=== PATIENT | male | born 1945 | race Caucasian/White ===

== ENCOUNTER 2019-01-01 12:08 | Emergency (ER) | payer MEDICARE, MEDICAID ==
[~2019-01-01] VITALS: Ht 172.7 cm; Wt 60.0 kg
[~2019-01-01 12:08] MED LIST: HYDR-4383 PO; PRED20TA PO
[2019-01-01 12:43] LABS: BASOPHILS # (AUTO) 0.1 X10'3 (0-0.2); BASOPHILS % (AUTO) 1.2 % (0-1); EOSINOPHILS # (AUTO) 0.4 X10'3 (0-0.9); EOSINOPHILS % (AUTO) 5.4 % (0-6); HEMATOCRIT 41.9 % (42.0-52.0); HEMOGLOBIN 14.1 g/dl (14.0-17.9); LYMPHOCYTES # (AUTO) 2.4 X10'3 (1.1-4.8); LYMPHOCYTES % (AUTO) 33.1 % (21-51); MEAN CORPUSCULAR HEMOGLOBIN 31.2 PG (27.0-31.0); MEAN CORPUSCULAR HGB CONC 33.7 g/dL (33.0-36.5); MEAN CORPUSCULAR VOLUME 92.8 FL (78-98); MEAN PLATELET VOLUME 6.7 FL (7.4-10.4); MONOCYTES # (AUTO) 0.5 X10'3 (0-0.9); MONOCYTES % (AUTO) 7.1 % (2-12); NEUTROPHILS # (AUTO) 3.9 X10'3 (1.8-7.7); NEUTROPHILS % (AUTO) 53.2 % (42-75); PLATELET COUNT 340 X10'3 (140-440); RED BLOOD COUNT 4.52 X10'6 (4.70-6.10); RED CELL DISTRIBUTION WIDTH 12.9 % (11.5-14.5); WHITE BLOOD COUNT 7.2 X10'3 (4.5-11.0)
[2019-01-01 12:55] LABS: ALANINE AMINOTRANSFERASE 25 U/L (12-78); ALBUMIN 3.7 G/DL (3.4-5.0); ALKALINE PHOSPHATASE 63 IU/L (46-116); ANION GAP 8 (8-16); ASPARTATE AMINO TRANSFERASE 20 U/L (10-37); BILIRUBIN,TOTAL 0.5 MG/DL (0.1-1.0); BLOOD UREA NITROGEN 22 MG/DL (7-18); BUN/CREATININE RATIO 16.7 (5.4-32.0); CALCIUM 9.3 MG/DL (8.5-10.1); CHLORIDE 105 MMOL/L (99-107); CREATININE 1.32 MG/DL (0.60-1.10); GLUCOSE 96 MG/DL (70-104); SODIUM 139 MMOL/L (135-145); TOTAL CARBON DIOXIDE 26.5 MMOL/L (24-32); TOTAL PROTEIN 7.5 G/DL (6.4-8.2); eGFR 53 ML/MIN
[2019-01-01 13:02] LABS: PARTIAL THROMBOPLASTIN TIME 29 SECONDS (22-32)
--- NOTE | 2019-01-01 13:58 | NUR ---
multiple failed attempts at iv start, pt refusing iv. refusing iv bolus. aware.
[2019-01-01 14:24] VITALS: BP 150/71
== END 2019-01-01 14:43 | disposition left against medical advice (07) ==
LOC: ER 12:10
DX: I63.81 Other cerebral infarction due to occlusion or stenosis of small artery (principal); G45.9 Transient cerebral ischemic attack, unspecified; I10 Essential (primary) hypertension; J44.9 Chronic obstructive pulmonary disease, unspecified; Z87.442 Personal history of urinary calculi; Z59.0 Homelessness; Z98.890 Other specified postprocedural states; Z79.899 Other long term (current) drug therapy
CPT/HCPCS: 36415; 70450; 71045; 80053; 84484; 85025; 85610; 85730; 93005; 99284

== ENCOUNTER 2019-02-13 08:21 | Emergency (ER) | payer MEDICARE, MEDICAID ==
[~2019-02-13] VITALS: Ht 172.7 cm; Wt 60.9 kg
[2019-02-13 08:29] VITALS: BP 128/74
--- NOTE | 2019-02-13 08:56 | NUR ---
right shoulder pain x 1 month r/t fall on rocks. able to lift arm with some discomfort
== END 2019-02-13 09:40 | disposition home or self-care (01) ==
LOC: ER 08:21
DX: M51.34 Other intervertebral disc degeneration, thoracic region (principal); I10 Essential (primary) hypertension; J44.9 Chronic obstructive pulmonary disease, unspecified; Z87.442 Personal history of urinary calculi; Z98.890 Other specified postprocedural states; Z59.0 Homelessness; Z88.2 Allergy status to sulfonamides; Z79.899 Other long term (current) drug therapy
CPT/HCPCS: 72128; 99284

== ENCOUNTER 2019-07-27 16:11 | Emergency (ER) | payer MEDICARE, MEDICAID ==
[~2019-07-27] VITALS: Ht 172.7 cm; Wt 59.5 kg
[2019-07-27 16:18] VITALS: BP 123/96
== END 2019-07-27 18:38 | disposition left against medical advice (07) ==
LOC: ER 16:11
DX: M25.511 Pain in right shoulder (principal); Z53.21 Procedure and treatment not carried out due to patient leaving prior to being seen by health care provider
CPT/HCPCS: 73030

== ENCOUNTER 2019-07-28 06:32 | Emergency (ER) | payer MEDICARE, MEDICAID ==
[~2019-07-28] VITALS: Ht 175.3 cm; Wt 59.6 kg
[2019-07-28] MEDS ORDERED: triamcinolone acetonide 40mg/ml inj IM ONE (07:15)
[2019-07-28 07:55] VITALS: BP 153/94
[2019-07-28] MEDS ORDERED: LIDOcaine 1% W/epiNEPHrine 1:100,000 20ml vial ONE (08:00)
== END 2019-07-28 08:22 | disposition home or self-care (01) ==
LOC: ER 06:32
DX: M75.41 Impingement syndrome of right shoulder (principal); I10 Essential (primary) hypertension; J44.9 Chronic obstructive pulmonary disease, unspecified; M79.18 Myalgia, other site; Z87.442 Personal history of urinary calculi; Z59.0 Homelessness; Z98.890 Other specified postprocedural states; Z88.1 Allergy status to other antibiotic agents; Z88.8 Allergy status to other drugs, medicaments and biological substances; Z79.899 Other long term (current) drug therapy; Z86.73 Personal history of transient ischemic attack (TIA), and cerebral infarction without residual deficits
CPT/HCPCS: 20552; 99284; J3301

== ENCOUNTER 2022-07-06 09:11 | Emergency (ER) | payer MEDICARE, MEDICAID ==
[~2022-07-06] VITALS: Ht 172.7 cm; Wt 54.0 kg
[2022-07-06 09:13] VITALS: BP 143/69
[2022-07-06] MEDS ORDERED: LIDOcaine 5% patch TP STA (10:43)
[2022-07-06] MEDS ORDERED: METH4TAB81 PO (10:43)
== END 2022-07-06 11:09 | disposition home or self-care (01) ==
LOC: ER 09:11
DX: M77.8 Other enthesopathies, not elsewhere classified (principal); M25.512 Pain in left shoulder; I10 Essential (primary) hypertension; J44.9 Chronic obstructive pulmonary disease, unspecified; Z87.442 Personal history of urinary calculi; Z98.890 Other specified postprocedural states; Z60.2 Problems related to living alone; Z88.1 Allergy status to other antibiotic agents; Z88.8 Allergy status to other drugs, medicaments and biological substances; Z79.899 Other long term (current) drug therapy
CPT/HCPCS: 73030; 99283

== ENCOUNTER 2022-10-04 17:52 | Emergency (ER) | payer MEDICARE, MEDICAID ==
[~2022-10-04] VITALS: Ht 172.7 cm; Wt 59.1 kg
[~2022-10-04 17:52] MED LIST changes: +METH4TAB81 PO
[2022-10-04 19:18] LABS: BASOPHILS # (AUTO) 0.1 X10'3 (0-0.2); BASOPHILS % (AUTO) 1.1 % (0-1); EOSINOPHILS # (AUTO) 0.3 X10'3 (0-0.9); EOSINOPHILS % (AUTO) 3.9 % (0-6); HEMATOCRIT 40.1 % (42.0-52.0); HEMOGLOBIN 13.4 g/dl (14.0-17.9); LYMPHOCYTES # (AUTO) 2.6 X10'3 (1.1-4.8); LYMPHOCYTES % (AUTO) 35.9 % (21-51); MEAN CORPUSCULAR HEMOGLOBIN 31.8 PG (27.0-31.0); MEAN CORPUSCULAR HGB CONC 33.5 g/dL (33.0-36.5); MEAN CORPUSCULAR VOLUME 94.8 FL (78-98); MEAN PLATELET VOLUME 6.6 FL (7.4-10.4); MONOCYTES # (AUTO) 0.6 X10'3 (0-0.9); NEUTROPHILS # (AUTO) 3.8 X10'3 (1.8-7.7); NEUTROPHILS % (AUTO) 51.1 % (42-75); PLATELET COUNT 285 X10'3 (140-440); RED BLOOD COUNT 4.23 X10'6 (4.70-6.10); RED CELL DISTRIBUTION WIDTH 13.3 % (11.5-14.5); WHITE BLOOD COUNT 7.4 X10'3 (4.5-11.0)
[2022-10-04 19:23] LABS: CLARITY,URINE CLEAR (Clear); COLOR,URINE YELLOW (Yellow); GLUCOSE, URINE NEGATIVE (Neg); KETONES,URINE NEGATIVE (Neg); LEUKOCYTE ESTERASE ,URINE NEGATIVE (Neg); NITRITES, URINE NEGATIVE (Neg); OCCULT BLOOD,URINE TRACE-INTACT (Neg); PH,URINE 6.5 (4.8-8.0); PROTEIN,URINE NEGATIVE (Neg); UROBILINOGEN,URINE 0.2 E.U/dL (0.2-1.0)
[2022-10-04 19:24] LABS: UA COLLECTION TYPE OTHER
[2022-10-04 19:30] LABS: APTT 26 SECONDS (22-32)
[2022-10-04 19:38] LABS: ALANINE AMINOTRANSFERASE 18 U/L (12-78); ALBUMIN 3.8 G/DL (3.4-5.0); ALBUMIN/GLOBULIN RATIO 1.1 (1.1-1.5); ALKALINE PHOSPHATASE 66 IU/L (46-116); ANION GAP 7 (8-16); ASPARTATE AMINO TRANSFERASE 22 U/L (10-37); BILIRUBIN,TOTAL 0.4 MG/DL (0.1-1.0); BLOOD UREA NITROGEN 19 MG/DL (7-18); BUN/CREATININE RATIO 14.7 (10.0-20.0); CALCIUM 9.1 MG/DL (8.5-10.1); CHLORIDE 103 MMOL/L (99-107); CREATININE 1.29 MG/DL (0.60-1.10); GLUCOSE 102 MG/DL (70-104); POTASSIUM 4.1 MMOL/L (3.5-5.1); SODIUM 141 MMOL/L (135-145); TOTAL CARBON DIOXIDE 31.1 MMOL/L (24-32); TOTAL PROTEIN 7.3 G/DL (6.4-8.2); eGFR 54 ML/MIN
[2022-10-04 19:41] LABS: BACTERIA,URINE NONE SEEN /HPF (Neg); MUCUS STRANDS NONE SEEN /LPF (Neg); RBC,URINE 0-2 /HPF (0-2); SQUAMOUS EPITHELIAL CELL,UR NONE SEEN /LPF (FEW); WBC,URINE 0-4 /HPF (0-4)
[2022-10-04] MEDS ORDERED: normal saline 1000ML IV soln IVB ONE (19:45)
[2022-10-04] MEDS ORDERED: iohexol 350MG/ML 100ml bottle IV ONE (19:49)
[2022-10-04 21:59] VITALS: BP 155/74
== END 2022-10-04 22:00 | disposition home or self-care (01) ==
LOC: ER 17:54
DX: R41.0 Disorientation, unspecified (principal); I10 Essential (primary) hypertension; J44.9 Chronic obstructive pulmonary disease, unspecified; Z88.2 Allergy status to sulfonamides; Z88.8 Allergy status to other drugs, medicaments and biological substances; Z79.899 Other long term (current) drug therapy
CPT/HCPCS: 36415; 70450; 70496; 70498; 71045; 80053; 81001; 82948; 84484; 85025; 85610; 85730; 93005; 99285; J3490; J7030; Q9967

== ENCOUNTER 2024-04-15 19:49 | Emergency (ER) | payer MEDICARE, MEDICAID ==
[~2024-04-15] VITALS: Ht 172.7 cm; Wt 56.4 kg
[2024-04-15] MEDS: cetirizine 10mg tablet PO ONE (20:28)
[2024-04-15] MEDS: dexamethasone sod phosphate 10mg/ml inj PO STA (20:29)
[2024-04-15] MEDS ORDERED: PRED20TA PO (20:44)
[2024-04-15] MEDS ORDERED: CETI1TAB PO (20:44)
[2024-04-15] MEDS ORDERED: FLUT9.9S BOTHNARES (20:44)
[2024-04-15 20:53] VITALS: BP 108/62; PULSE 80; RESP 16; TEMP 98.5; O2SAT 99
== END 2024-04-15 20:54 | disposition home or self-care (01) ==
LOC: ER 19:50
DX: H69.93 Unspecified Eustachian tube disorder, bilateral (principal); I10 Essential (primary) hypertension; J44.9 Chronic obstructive pulmonary disease, unspecified; Z88.2 Allergy status to sulfonamides; Z79.899 Other long term (current) drug therapy
CPT/HCPCS: 99283; J1100

== ENCOUNTER 2024-06-12 10:21 | Emergency (ER) | payer MEDICARE, MEDICAID ==
[~2024-06-12] VITALS: Ht 172.7 cm; Wt 58.0 kg
[~2024-06-12 10:21] MED LIST changes: +CETI1TAB PO; +FLUT9.9S BOTHNARES
[2024-06-12 12:27] LABS: BASOPHILS # (AUTO) 0.1 X10'3 (0-0.2); EOSINOPHILS # (AUTO) 0.2 X10'3 (0-0.9); EOSINOPHILS % (AUTO) 2.6 % (0-6); HEMATOCRIT 41.7 % (42.0-52.0); HEMOGLOBIN 13.9 g/dl (14.0-17.9); LYMPHOCYTES # (AUTO) 1.7 X10'3 (1.1-4.8); LYMPHOCYTES % (AUTO) 27.2 % (21-51); MEAN CORPUSCULAR HEMOGLOBIN 32.2 PG (27.0-31.0); MEAN CORPUSCULAR HGB CONC 33.5 g/dL (33.0-36.5); MEAN CORPUSCULAR VOLUME 96.3 FL (78-98); MEAN PLATELET VOLUME 7.5 FL (7.4-10.4); MONOCYTES # (AUTO) 0.5 X10'3 (0-0.9); MONOCYTES % (AUTO) 8.7 % (2-12); NEUTROPHILS # (AUTO) 3.7 X10'3 (1.8-7.7); NEUTROPHILS % (AUTO) 60.5 % (42-75); PLATELET COUNT 352 X10'3 (140-440); RED BLOOD COUNT 4.33 X10'6 (4.70-6.10); RED CELL DISTRIBUTION WIDTH 13.4 % (11.5-14.5); WHITE BLOOD COUNT 6.1 X10'3 (4.5-11.0)
[2024-06-12 12:41] LABS: ALANINE AMINOTRANSFERASE 29 U/L (12-78); ALBUMIN 3.6 G/DL (3.4-5.0); ALBUMIN/GLOBULIN RATIO 0.9 (1.1-1.5); ALKALINE PHOSPHATASE 55 IU/L (46-116); ANION GAP 6 (8-16); ASPARTATE AMINO TRANSFERASE 22 U/L (10-37); BILIRUBIN,TOTAL 0.5 MG/DL (0.1-1.0); BLOOD UREA NITROGEN 15 MG/DL (7-18); BUN/CREATININE RATIO 13.2 (10.0-20.0); CALCIUM 8.7 MG/DL (8.5-10.1); CHLORIDE 103 MMOL/L (99-107); CREATININE 1.14 MG/DL (0.60-1.10); GLUCOSE 96 MG/DL (70-104); POTASSIUM 4.2 MMOL/L (3.5-5.1); SODIUM 140 MMOL/L (135-145); TOTAL CARBON DIOXIDE 31.5 MMOL/L (24-32); TOTAL PROTEIN 7.5 G/DL (6.4-8.2); eCRCL 45 ML/MIN; eGFR 62 ML/MIN
[2024-06-12 14:22] VITALS: BP 156/79; PULSE 76; RESP 16; TEMP 98.5; O2SAT 99
== END 2024-06-12 14:03 | disposition home or self-care (01) ==
LOC: ER 10:22
DX: C76.2 Malignant neoplasm of abdomen (principal); I10 Essential (primary) hypertension; J44.9 Chronic obstructive pulmonary disease, unspecified; Z88.2 Allergy status to sulfonamides; Z88.8 Allergy status to other drugs, medicaments and biological substances; Z79.899 Other long term (current) drug therapy; Z79.52 Long term (current) use of systemic steroids; Z59.00 Homelessness unspecified; Z60.2 Problems related to living alone; Z87.442 Personal history of urinary calculi; Z98.890 Other specified postprocedural states
CPT/HCPCS: 36415; 80053; 85025; 99283

== ENCOUNTER 2024-12-27 18:48 | Emergency (ER) | payer MEDICARE, MEDICAID ==
[~2024-12-27] VITALS: Ht 172.7 cm; Wt 56.4 kg
--- NOTE | 2024-12-27 20:23 | RADIOLOGY REPORT ---
CLINICAL INDICATION: left foot pain TECHNIQUE: 3 radiographic views of the left foot were obtained. Comparison: None FINDINGS/IMPRESSION: There is chronic fracture deformity of the 1st metatarsal head with subtle linear lucency laterally. Correlate with point tenderness for possible acute on chronic fracture of the 1st metatarsal head. No dislocation. Small plantar Calcaneal bony spur. Questionable mild soft tissue edema of the dorsum of the foot. Vascular calcification is noted
--- NOTE | 2024-12-27 20:36 | Physician Documentation ---
History of Present Illness ~ Chief Complaint: Ankle pain Stated Complaint: "I THINK I MAY HAVE BEEN BIT ON FOOT BY A SPIDER" Time Seen by MD: 19:05 Primary Medical Doctor: DR. LUU HPI Patient is seen today with complaints of left-sided foot pain that started just yesterday while he was walking around his guarding. Patient is unsure whether he rolled his ankle where he got bit by a bee or a spider something. Patient states he has tenderness to palpation right at the apex of the dorsum of the his left foot. Patient admits to to bunion surgeries of the left foot of the 1st metatarsal. Patient denies any fevers or chills or chest pain or shortness of breath or abdominal pain or nausea, vomiting, diarrhea. Patient has no other concern or complaint at this time. Tetanus witin 5 years: Yes Medication Reconciliation Allergies: Coded Allergies: sulfamethoxazole (Unverified Allergy, Severe, throat swelling, 12/27/24) trimethoprim (Unverified Allergy, Severe, throat swelling, 12/27/24) Scheduled Cetirizine Hcl/Pseudoephedrine (Zyrtec-D Tablet), 1 TAB PO Q12H Fluticasone Propionate (Flonase Allergy Relief), 2 SPRAYS BOTHNARES DAILY Hydrocodone/Acetaminophen ([place] 5-325 Tablet), 1 TABLET PO BID Methylprednisolone (Medrol Dosepak), 4 MG PO DAILY Prednisone* (Prednisone*), 60 MG PO DAILY Past Medical History Past Medical History: Hypertension, COPD, Kidney Stones Past Surgical History: orthopedic surgeries, other Alcohol Use: None Drug Use: none Lives with: Alone Lives In: Homeless Review of Systems Constitutional: Denies: chills, fever, weakness Eyes: Denies: pain, blurred vision ENT: Denies: ear pain, nose pain, throat pain, mouth pain Respiratory: Denies: cough, shortness of breath Cardiovascular: Denies: chest pain, palpitations Gastrointestinal: Denies: abdominal pain, nausea, vomiting Genitourinary: Denies: burning, dysuria Male Genitalia: Denies: penile discharge, testicular pain Neurological: Denies: headache, dizziness Musculoskeletal: Denies: pain, swelling Integumentary: Denies: rash, lesions Allergic/Immunologic: Denies: hives, itching Hematologic/Lymphatic: Denies: no symptoms reported Psychiatric: Denies: depression, anxiety Physical Exam Vital Signs: Temperature: 98.1, Source: Oral, Heart Rate: 58, Respiratory Rate: 18, BP: 139/61, Pulse Oximetry: 98, Weight: 56.360 Physical Exam General: Awake and Alert, no acute distress. HEENT: Conjunctiva pink, Sclera clear, Mucus Membranes moist. Neck: Supple without masses and tenderness. Resp: Unlabored. Lungs clear to auscultation bilaterally. Heart: Regular Rate and rhythm, normal S1 and S2 without murmur, rub or gallop. Musculoskeletal: Patient on exam has tenderness to palpation of the dorsum of the left foot near the most distal navicular bones on the medial aspect of the foot. Patient has decreased range of motion of the left ankle and toes. Patient is neurovascularly intact distally. Motor function is intact distally. Extremities: No cyanosis,clubbing or edema. Skin: Patient has mild erythema but no significant warmth or induration or sign of infection of the dorsum of the left foot. Progress Results/Orders Results/Orders Orders - AMADO JIMENEZ PAC Foot, Complete (3vw Min) (12/27/24 19:40) Completed Orders - AMADO JIMENEZ PAC Foot, Complete (3vw Min) (12/27/24 19:40) Vital Signs 12/27/24 19:01 Temp 98.1 Pulse 58 Resp 18 B/P (MAP) 139/61 Pulse Ox 98 EKG/XRAY/CT/US/VASC/MRI Bone/Soft Tissue X-Ray (Ext.) : Additional Comment X-ray of left foot interpreted by myself today shows changes of the 1st metatarsal head consistent with possible chronic fracture versus acute on chronic fracture. Bones are otherwise in anatomic alignment. DIAGNOSTIC RADIOLOGY Patient: DEEPA NORIEGA Medical Record: [id number] [facility] : 1945, Age: 79 Sex: Male Location: ER Patient Status: REG ER Service Date/Time: 12/27/241939 Ordering Physician: AMADO JIMENEZ PAC Exam: FOOT, COMPLETE (3VW MIN) CLINICAL INDICATION: left foot pain TECHNIQUE: 3 radiographic views of the left foot were obtained. Comparison: None FINDINGS/IMPRESSION: There is chronic fracture deformity of the 1st metatarsal head with subtle linear lucency laterally. Correlate with point tenderness for possible acute on chronic fracture of the 1st metatarsal head. No dislocation. Small plantar Calcaneal bony spur. Questionable mild soft tissue edema of the dorsum of the foot. Vascular calcification is noted Electronically Signed by:VANDANA WALTER DO Date & Time: 12/27/242020 Dictated by: VANDANA WALTER DO Dictation date and time: 12/27/241956 Primary Care Provider: NO PRIMARY CARE PROVIDER cc: AMADO JIMENEZ PAC ~ Medical Decision Making Findings Patient is seen today with complaints of left-sided foot pain that started just yesterday while he was walking around his guarding. Patient is unsure whether he rolled his ankle where he got bit by a bee or a spider something. Patient states he has tenderness to palpation right at the apex of the dorsum of the his left foot. Patient admits to to bunion surgeries of the left foot of the 1st metatarsal. Patient denies any fevers or chills or chest pain or shortness of breath or abdominal pain or nausea, vomiting, diarrhea. Patient has no other concern or complaint at this time. Patient was given dose of Toradol 15 mg IM in the ED today. Prescription of Medrol Dosepak sent to patient's pharmacy. Patient will follow up with primary care in 2-5 days if no better as needed sooner. Return to ED with any worsening, concerning or changing symptoms. Departure Disposition: 01 HOME / SELF CARE / HOMELESS Impression: Primary Impression: Left foot pain Additional Impression: Bug bite Qualified Codes: W57.XXXA - Bitten or stung by nonvenomous insect and other nonvenomous arthropods, initial encounter Condition: Stable Additional Instructions: Patient was given dose of Toradol 15 mg IM in the ED today. Prescription of Medrol Dosepak sent to patient's pharmacy. Patient will follow up with primary care in 2-5 days if no better as needed sooner. Return to ED with any worsening, concerning or changing symptoms. Referrals: NO PRIMARY CARE PROVIDER (PCP) Prescriptions Methylprednisolone (Medrol Dosepak) 4 Mg Tab.ds.pk 0 PO UD, #21 TAB 0 Refills take 6 Pills Day 1, 5 Pills Day 2, 4 Pills Day 3, 3 Pills Day 4, 2 Pills Day 5 and 1 pill Day 6 Prov: AMADO JIMENEZ 12/27/24 Signature Scribe Signature: No scribe Attestation: No scribe AMADO JIMENEZ PAC Dec 27, 2024 20:36
[2024-12-27] MEDS ORDERED: METH4TAB81 PO (20:48)
[2024-12-27] MEDS: ketorolac trometh 30MG/ML vial 30 MG/ML VIAL IV STA (20:52)
[2024-12-27] MEDS: ketorolac trometh 30MG/ML vial 30 MG/ML VIAL IM ONE (20:54)
[2024-12-27 21:00] VITALS: BP 131/78; PULSE 60; RESP 16; TEMP 98.1; O2SAT 98
[2024-12-27] MEDS: ketorolac trometh 15mg/ml vial 15 MG/ML ML IM ONE (21:19)
== END 2024-12-27 21:00 | disposition home or self-care (01) ==
LOC: ER 18:49
DX: S90.862A Insect bite (nonvenomous), left foot, initial encounter (principal); I10 Essential (primary) hypertension; J44.9 Chronic obstructive pulmonary disease, unspecified; Z88.1 Allergy status to other antibiotic agents; Z88.2 Allergy status to sulfonamides; Z88.8 Allergy status to other drugs, medicaments and biological substances; W57.XXXA Bitten or stung by nonvenomous insect and other nonvenomous arthropods, initial encounter; Y93.89 Activity, other specified; Y92.89 Other specified places as the place of occurrence of the external cause; Y99.8 Other external cause status
CPT/HCPCS: 73630; 99283; A6402; A6449